=== PATIENT | male | born 1940 | race Caucasian/White ===

== ENCOUNTER 2020-04-07 13:38 | Inpatient (IN) | payer MEDICARE, BC ==
[~2020-04-07] VITALS: Ht 167.6 cm; Wt 72.6 kg
--- NOTE | 2020-04-07 13:48 | NUR ---
Brittany tamayo in [facility] - 04/07/20 at 1555 by PEDRO Lencho Pandey NP at bedside
[2020-04-07] MEDS ORDERED: IV NORMAL SALINE 1000 ML BAG IV ONE (14:00)
[2020-04-07 14:29] LABS: BASOPHILS % (AUTO) 0.5 % (0.0-2.0); EOSINOPHILS % (AUTO) 0.6 % (0.0-7.0); HEMATOCRIT 23.7 % (36.7-47.1); HEMOGLOBIN 7.8 g/dL (12.5-16.3); LYMPHOCYTES # (AUTO) 0.5 K/uL (20.0-40.0); LYMPHOCYTES % (AUTO) 10.2 % (20.5-51.5); MEAN CORPUSCULAR HEMOGLOBIN 31.2 uug (23.8-33.4); MEAN CORPUSCULAR HGB CONC 33 g/dL (32.5-36.3); MEAN CORPUSCULAR VOLUME 94.6 fL (73.0-96.2); MONOCYTES # (AUTO) 0.4 K/uL (2.0-10.0); MONOCYTES % (AUTO) 7.3 % (0.0-11.0); NEUTROPHILS % (AUTO) 81.4 % (38.5-71.5); PLATELET COUNT (AUTO) 446 K/uL (152-348); RED BLOOD CELL COUNT(AUTO) 2.51 MIL/uL (4.06-5.63); WHITE BLOOD COUNT (AUTO) 4.9 K/uL (3.6-10.2)
[2020-04-07] MEDS ORDERED: THIO300C PO (14:43)
[2020-04-07] MEDS ORDERED: AZAT50TA18 PO (14:43)
[2020-04-07] MEDS ORDERED: UBID200C36 PO (14:43)
[2020-04-07] MEDS ORDERED: LINA5TAB PO (14:43)
[2020-04-07] MEDS ORDERED: PARO25TA16 PO (14:43)
[2020-04-07] MEDS ORDERED: CELE200C PO (14:43)
[2020-04-07] MEDS ORDERED: ICOS1CAP PO (14:43)
[2020-04-07] MEDS ORDERED: TURM1POW PO (14:43)
[2020-04-07] MEDS ORDERED: CALC-896 PO (14:43)
[2020-04-07] MEDS ORDERED: PRED1TAB PO (14:43)
[2020-04-07] MEDS ORDERED: FOLI1TAB16 PO (14:43)
[2020-04-07] MEDS ORDERED: FERR324T PO (14:43)
[2020-04-07] MEDS ORDERED: [UNRECOGNIZED DRUG - OTHER] (14:43)
[2020-04-07] MEDS ORDERED: TAMS-3 PO (14:43)
[2020-04-07] MEDS ORDERED: APIX2.5T PO (14:43)
[2020-04-07] MEDS ORDERED: METF-440 PO (14:43)
[2020-04-07] MEDS ORDERED: FINA5TAB11 PO (14:43)
[2020-04-07] MEDS ORDERED: ACET-73 PO (14:43)
[2020-04-07 15:01] LABS: CARBON DIOXIDE 30 mmol/L (21-32); CHLORIDE 96 mmol/L (98-107); CREATININE 0.4 mg/dL (0.6-1.3); GLUCOSE 147 mg/dL (74-106); POTASSIUM 4.2 mmol/L (3.5-5.1); UREA NITROGEN, BLOOD 15 mg/dL (7-18)
[2020-04-07 15:14] LABS: ALANINE AMINOTRANSFERASE 6 U/L (16-63); ALKALINE PHOSPHATASE 50 U/L (50-136); ASPARTATE AMINOTRANSFERASE 10 U/L (15-37); BILIRUBIN,DIRECT 0.3 mg/dL (0.0-0.2); BILIRUBIN,TOTAL 0.6 mg/dL (0.2-1.0); TOTAL PROTEIN, SERUM 4.2 g/dL (6.4-8.2)
[2020-04-07 15:25] LABS: BAND % (MANUAL) 46 % (0-10); LYMPHOCYTES % (MANUAL) 8 % (20-40); MONOCYTES % (MANUAL) 8 % (2-10); NEUTROPHILS % (MANUAL) 36 % (42-75)
[2020-04-07 15:26] LABS: EOSINOPHILS % (MANUAL) 1 % (0-8); METAMYELOCYTES % 1 % (0-1)
[2020-04-07 15:33] LABS: *BILIRUBIN,URIN 1+ (NEGATIVE); *BLOOD, URINE NEGATIVE (NEGATIVE); *CLARITY,URINE CLEAR (CLEAR); *COLOR,URINE DARK YELLOW (YELLOW); *KETONES,URINE NEGATIVE (NEGATIVE); LEUKOCYTE ESTERASE ,URINE NEGATIVE (NEGATIVE); NITRITE, URINE NEGATIVE (NEGATIVE); UGLUCOSE NEGATIVE (NEGATIVE)
[2020-04-07 15:38] LABS: RBC,URINE 0-3 /HPF (0-3); WBC,URINE 0-3 /HPF (0-3)
[2020-04-07 15:39] LABS: MUCUS,URINE FEW /LPF (0-FEW); SQUAMOUS EPITHELIAL CELL,UR FEW /HPF (NONE SEEN)
--- NOTE | 2020-04-07 15:39 | NUR ---
assissted md with rectal exam.
--- NOTE | 2020-04-07 15:41 | NUR ---
Called [facility] for panel placement
--- NOTE | 2020-04-07 15:47 | NUR ---
Pt. admitted to Tele , under care of Dr. Allison Belongs List completed
--- NOTE | 2020-04-07 15:48 | NUR ---
Michelle Pandey at bedside to evaluate patient
[2020-04-07 16:00] VITALS: BP 114/59
[2020-04-07] MEDS ORDERED: ONDANSETRON 4 MG/2 ML VIAL IV PRN (16:00)
[2020-04-07] MEDS ORDERED: ACETAMINOPHEN 325 MG TABLET PO PRN (16:00)
[2020-04-07] MEDS ORDERED: MAGNESIUM HYDROXIDE 30 ML LIQUID UDC PO PRN (16:00)
[2020-04-07] MEDS ORDERED: Z GUARD REMEDY PASTE 57 GM TUBE TOP PRN (16:00)
[2020-04-07] MEDS ORDERED: predniSONE 1 MG TABLET PO SCH (16:00)
[2020-04-07] MEDS ORDERED: PAROXETINE HCL 10 MG PO SCH (16:00)
[2020-04-07] MEDS ORDERED: Medication Not On Formulary EA (Icosapent Ethyl (Vascepa) 1 GM) PO SCH (16:00)
[2020-04-07] MEDS ORDERED: HYDROCODONE/APAP 5-325MG TABLET PO PRN (16:00)
--- NOTE | 2020-04-07 16:30 | NUR ---
Dr. Allison at bedside to evaluate the patient
[2020-04-07] MEDS: predniSONE 20 MG TABLET PO SCH (16:45)
[2020-04-07] MEDS ORDERED: CELECOXIB 200 MG CAPSULE PO SCH (17:00)
[2020-04-07] MEDS: FERROUS GLUCONATE 324 MG TABLET PO SCH (17:00)
[2020-04-07] MEDS ORDERED: Medication Not On Formulary EA (Apixaban (Eliquis) 2.5 MG) PO SCH (17:00)
[2020-04-07] MEDS: AZATHIOPRINE 50 MG TABLET PO SCH (17:00)
[2020-04-07] MEDS: ACETAMINOPHEN ES 500 MG TABLET PO SCH (17:00)
[2020-04-07] MEDS ORDERED: APIXABAN 5 MG TABLET PO SCH (17:00)
--- NOTE | 2020-04-07 17:10 | NUR ---
RECEIVED PATIENT FROM ER. PATIENT QUADRIPLEGIC, ALERT AND ORIENTED. PATIENT DENIES PAIN AND DISCOMFORT. NO S/S OF SHORTNESS OF BREATH. BED IN LOWEST POSITION, SIDE RAILS UP X2, CALL LIGHT WITHIN REACH. WILL ENDORSE TO ONCOMING NURSE.
[2020-04-07] MEDS ORDERED: LEVO50TA8 PO (17:17)
[2020-04-07] MEDS ORDERED: PANT40TA2 PO (17:17)
[2020-04-07 20:00] VITALS: BP 100/65
--- NOTE | 2020-04-07 20:00 | NUR ---
Received patient in bed asleep but arousable. A&Ox2-3, Farsi speaking. No SOB noted. IV on L wrist 20g intact and patent. Safety measures implemented. Call light in reach
[2020-04-07] MEDS ORDERED: FINASTERIDE 5 MG TABLET PO SCH (21:00)
[2020-04-07] MEDS ORDERED: TAMSULOSIN HCL 0.4 MG CAP.SR.24H PO SCH (21:00)
--- NOTE | 2020-04-07 21:30 | NUR ---
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 Will cont to ff/up
--- NOTE | 2020-04-07 22:45 | NUR ---
Received a call from patient's son Dr. Jono Lamb and said he's concerned about patient's low Na level of 129 and would like it to be corrected. Patient already received 1L of NS 0.9% in the ER. Informed Dr. Wolfe w/ n.o for NS 0.9% @ 75cc/hr after blood transfusion. Also patient's son Dr. Lamb requesting Tylenol to be given to his dad. Patient is currently NPO but informed Dr. Wolfe and said it's Ok to give Tylenol PO.
[2020-04-07 23:12] VITALS: BP 102/53
[2020-04-07] MEDS ORDERED: IV NS 1000 ML 1,000 ML IV PRN (23:15)
--- NOTE | 2020-04-07 23:20 | NUR ---
Started blood transfusion of 1 unit PRBC at 2312. Patient is stable condition. VS stable, no s/sx of adverse rxn. Will cont to monitor
[2020-04-07 23:27] VITALS: BP 103/58
[2020-04-07 23:57] VITALS: BP 105/53
[2020-04-08] VITALS (7 sets, daily range): BP systolic 90–108; BP diastolic 39–59
--- NOTE | 2020-04-08 02:30 | NUR ---
1 unit of PRBC transfused. VS stable. No adverse reactions noted. Patients sleeping at this time. Will cont to monitor
--- NOTE | 2020-04-08 06:41 | NUR ---
Patient slept well. No SOB noted. No complaints of pain at this time. IV on L wrist 20g intact and patent w/ IVF infusing. Turned and repositioned. All needs attended. Will endorse accordingly
--- NOTE | 2020-04-08 07:45 | NUR ---
Patient in bed, awake and verbally responsive, farsi Speaking. No signs of distress noted. No SOB. saturating 96% on Room Air. No complain of pain or discomfort. Afebrile. Temp 97.4F. No cough noted. Kept clean and comfortable. Awaiting for covid 19 result. kept clean and comfortable. Will continue to monitor.
[2020-04-08] MEDS: predniSONE 20 MG TABLET PO SCH (08:00)
[2020-04-08 08:40] LABS: BASOPHILS % (AUTO) 0.5 % (0.0-2.0); EOSINOPHILS % (AUTO) 0.6 % (0.0-7.0); HEMATOCRIT 25.2 % (36.7-47.1); HEMOGLOBIN 8.6 g/dL (12.5-16.3); LYMPHOCYTES # (AUTO) 0.4 K/uL (20.0-40.0); LYMPHOCYTES % (AUTO) 10.6 % (20.5-51.5); MEAN CORPUSCULAR HEMOGLOBIN 31.5 uug (23.8-33.4); MEAN CORPUSCULAR HGB CONC 34 g/dL (32.5-36.3); MEAN CORPUSCULAR VOLUME 91.8 fL (73.0-96.2); MONOCYTES # (AUTO) 0.6 K/uL (2.0-10.0); MONOCYTES % (AUTO) 15.1 % (0.0-11.0); NEUTROPHILS # (AUTO) 3.1 K/uL (1.8-8.9); NEUTROPHILS % (AUTO) 73.2 % (38.5-71.5); PLATELET COUNT (AUTO) 409 K/uL (152-348); RED BLOOD CELL COUNT(AUTO) 2.75 MIL/uL (4.06-5.63); WHITE BLOOD COUNT (AUTO) 4.2 K/uL (3.6-10.2)
[2020-04-08] MEDS ORDERED: PAROXETINE HCL 10 MG TABLET PO SCH (09:00)
[2020-04-08] MEDS ORDERED: FOLIC ACID 1 MG TABLET PO SCH (09:00)
[2020-04-08] MEDS: AZATHIOPRINE 50 MG TABLET PO SCH (09:00)
[2020-04-08] MEDS ORDERED: CALCIUM CITRA-VITAMIN D 315 MG-250 UNITS TABLET PO SCH (09:00)
[2020-04-08] MEDS: ACETAMINOPHEN ES 500 MG TABLET PO SCH (09:00)
[2020-04-08] MEDS ORDERED: METFORMIN HCL 500 MG TABLET PO SCH (09:00)
[2020-04-08] MEDS: FERROUS GLUCONATE 324 MG TABLET PO SCH ×2 (09:00→13:00)
--- NOTE | 2020-04-08 09:00 | NUR ---
All AM PO medication non administered, need to be seen by ST to check for Swallowing. MANNY Pandey made aware.
[2020-04-08 09:03] LABS: IRON, SERUM 30 ug/dL (50-175)
[2020-04-08 09:35] LABS: CARBON DIOXIDE 32 mmol/L (21-32); CHLORIDE 99 mmol/L (98-107); CHOLESTEROL 106 mg/dL (<200); CREATININE 0.5 mg/dL (0.6-1.3); FERRITIN 2183 ng/mL (26-388); GLUCOSE 100 mg/dL (74-106); HDL CHOLESTEROL 29 mg/dL (40-60); MAGNESIUM 1.8 mg/dL (1.8-2.4); PHOSPHOROUS 3.4 mg/dL (2.5-4.9); POTASSIUM 4.5 mmol/L (3.5-5.1); TRIGLYCERIDES 97 MG/DL (30-150); UREA NITROGEN, BLOOD 13 mg/dL (7-18); URIC ACID 2.8 mg/dL (3.5-7.2)
[2020-04-08 10:06] LABS: THYROID STIMULATING HORMONE 0.585 mIU/mL (0.358-3.740)
[2020-04-08] MEDS ORDERED: IV NS 1000 ML 500 ML IV ONE (10:30)
[2020-04-08 10:38] LABS: BAND % (MANUAL) 16 % (0-10); EOSINOPHILS % (MANUAL) 1 % (0-8); LYMPHOCYTES % (MANUAL) 13 % (20-40); MONOCYTES % (MANUAL) 14 % (2-10); NEUTROPHILS % (MANUAL) 56 % (42-75)
--- NOTE | 2020-04-08 15:45 | NUR ---
Patient with Order to be discharge to Home today, Patient is awake and verbally responsive. farsi Speaking, No signs of distress noted. On Room Air ,saturating 96%. No complain of Pain or discomfort. Discharge Instructions given to Patient and family and verbalized understanding. Removed IV site and wrist band. Patient was transfer from [facility] [place] to [facility] electric Wheelchair with 2 person assist. All belongings was sent with patient. Patient was picked up by [facility]) in Stable condition.
== END 2020-04-08 15:40 | disposition home or self-care (01) | DRG 377 ==
LOC: ER 13:38 → TELE 16:27 → MED 21:41
PROVIDERS: ADMIT Registered Nurse; ATTEND Internal Medicine
PROC: 30233N1 Transfusion of Nonautologous Red Blood Cells into Peripheral Vein, Percutaneous Approach (ICD-10-PCS; principal; 2020-04-07)
DX: K29.71 Gastritis, unspecified, with bleeding (principal); G82.50 Quadriplegia, unspecified; D66 Hereditary factor VIII deficiency; D68.69 Other thrombophilia; M31.30 Wegener's granulomatosis without renal involvement; E87.1 Hypo-osmolality and hyponatremia; D62 Acute posthemorrhagic anemia; Z91.81 History of falling; E86.1 Hypovolemia; E86.0 Dehydration; E11.9 Type 2 diabetes mellitus without complications; E88.09 Other disorders of plasma-protein metabolism, not elsewhere classified; F32.9 Major depressive disorder, single episode, unspecified; F41.9 Anxiety disorder, unspecified; I10 Essential (primary) hypertension; N40.0 Benign prostatic hyperplasia without lower urinary tract symptoms; Z79.01 Long term (current) use of anticoagulants; Z79.52 Long term (current) use of systemic steroids; R53.1 Weakness; T39.395A Adverse effect of other nonsteroidal anti-inflammatory drugs [NSAID], initial encounter; T38.0X5A Adverse effect of glucocorticoids and synthetic analogues, initial encounter; T45.515A Adverse effect of anticoagulants, initial encounter; Y92.009 Unspecified place in unspecified non-institutional (private) residence as the place of occurrence of the external cause
CPT/HCPCS: 36415; 70030-TC; 71045; 83550; 83605; 83735; 84100; 84300; 84443; 84550; 85025; 85730; 86850; 86900; 86901; 86920; 87040; 87086; 93005; G0378; J7030; J7500; J7512; P9016-BL; P9021; U0003-CS